=== PATIENT | female | born 1970 | race Caucasian/White ===

== ENCOUNTER → 2018-07-13 11:38 | Outpatient (CLI) | payer OTHER, SELFPAY ==
[2018-07-13 12:04] LABS: Influenza A and B by PCR Rapid Negative (Negative)
== END ==
PROVIDERS: Family Provider Family Medicine; PCP Family Medicine; Visit Provider Physician Assistant
DX: J02.9 Acute pharyngitis, unspecified (principal); J06.9 Acute upper respiratory infection, unspecified
CPT/HCPCS: 87070; 87077; 87400

== ENCOUNTER → 2018-07-21 09:44 | Outpatient (CLI) | payer OTHER, SELFPAY ==
--- NOTE | 2018-07-21 | DI.MG.S_ITS ---
BILATERAL DIGITAL SCREENING MAMMOGRAM 3D/2D WITH CAD WITH AUGMENTATION: 07/21/2018 CLINICAL: Routine screening. Comparison is made to exams dated: 03/04/2015 mammogram, 10/27/2012 mammogram, and 09/10/2011 mammogram - [facility]. The tissue of both breasts is heterogeneously dense. This may lower the sensitivity of mammography. Current study was also evaluated with a Computer Aided Detection (CAD) system. Bilateral breast implants are intact. No significant masses, calcifications, or other findings are seen in either breast. There has been no significant interval change. IMPRESSION: NEGATIVE There is no mammographic evidence of malignancy. A 1 year screening mammogram is recommended. This exam was interpreted at Station ID: [id number]. NOTE: For mammograms, a report in lay terms will be sent to the patient. Approximately 15% of breast malignancies will not be visualized mammographically. In the management of a palpable breast mass, a negative mammogram must not discourage biopsy of a clinically suspicious lesion. Electronically Signed By: Arnav estes/ezequiel:07/21/2018 12:37:39 letter sent: Normal Exam ACR BI-RADS Category 1: Negative [id number]
== END ==
PROVIDERS: Family Provider Family Medicine; PCP Family Medicine; Visit Provider Family Medicine
DX: Z12.31 Encounter for screening mammogram for malignant neoplasm of breast (principal)
CPT/HCPCS: 77063; 77067

== ENCOUNTER → 2019-01-22 11:27 | Outpatient (CLI) | payer OTHER, SELFPAY ==
--- NOTE | 2019-01-22 11:28 | DI.RAD.S_ITS ---
PROCEDURE: XR CHEST 2V INDICATIONS: rule out pnx TECHNIQUE: 2 views of the chest were acquired. COMPARISON: None. FINDINGS: Surgical changes and devices: None. Lungs and pleura: Lungs are clear. No pleural effusions or pneumothorax. Mediastinum: Mediastinal contours are normal. Heart size is normal. Bones and chest wall: No suspicious bony abnormalities. Soft tissues appear unremarkable. IMPRESSION: No acute disease. No pneumothorax identified. Dictated by: Lewis Avila M.D. on 01/22/2019 at 13:47 Approved by: Lewis Avila M.D. on 01/22/2019 at 14:10
== END ==
PROVIDERS: Family Provider Family Medicine; PCP Family Medicine; Visit Provider Nurse Practitioner
DX: R05 Cough (principal)
CPT/HCPCS: 71046

== ENCOUNTER → 2019-02-09 08:56 | Outpatient (CLI) | payer OTHER, SELFPAY ==
[2019-02-09 09:22] LABS: Add Manual Diff / Slide Review NO; Basophils Absolute Auto 100 /uL (0-100); Basophils Percent Auto 1.4 % (0-2); Eosinophils Absolute Auto 700 /uL (0-450); Eosinophils Percent Auto 11.2 % (2-4); Hematocrit 41.6 % (36-46); Hemoglobin 13.9 g/dL (12.0-16.0); Lymphocytes Absolute Auto 1700 /uL (1100-4500); Lymphocytes Percent Auto 25.9 % (25-40); Mean Corpuscular HGB Conc 33.4 % (30-36); Mean Corpuscular Hemoglobin 29.4 PG (26-34); Mean Corpuscular Volume 88.1 fL (80-100); Monocytes Absolute Auto 500 /uL (0-900); Monocytes Percent Auto 7.6 % (3-14); Neutrophils Absolute Auto 3500 /uL (1500-7000); Neutrophils Percent Auto 53.9 % (50-75); Platelet Count 278 X10^3/uL (150-400); Red Blood Cell Count 4.72 X10^6/uL (4.0-5.2); Red Cell Distribution Width 13.6 % (11.6-14.8); White Blood Cell Count 6.6 X10^3/uL (4.5-11.0)
[2019-02-09 09:37] LABS: Alanine Aminotransferase 17 IU/L (<35); Albumin 4.2 g/dL (3.5-5.0); Albumin Globulin Ratio 1.3 (1.0-2.8); Alkaline Phosphatase 63 U/L (38-126); Aspartate Aminotransferase 24 IU/L (14-36); BUN Creatinine Ratio 24.3 (6-22); Bilirubin Total 0.8 mg/dL (0.2-1.3); Blood Urea Nitrogen 17 mg/dL (7-17); Calcium 9.3 mg/dL (8.4-10.2); Carbon Dioxide 30 mmol/L (22-32); Chloride 103 mmol/L (98-107); Cholesterol 177 mg/dL (140-199); Estimated Glomerular Filt Rate > 60.0 mL/min (>60); Globulin 3.2 g/dL (1.7-4.1); Glucose 96 mg/dL (70-100); HDL Cholesterol 58 mg/dL (40-60); HEMOLYSIS 22 (0-50); LDL Cholesterol Calculated 102 mg/dL (<100); Potassium 4.5 mmol/L (3.4-5.1); Sodium 138 mmol/L (137-145); Total Protein 7.4 g/dL (6.3-8.2); Triglycerides 83 mg/dL (35-150)
[2019-02-09 10:18] LABS: TSH w/ Reflex to FT4 0.94 uIU/mL (0.47-4.68)
== END ==
PROVIDERS: PCP Family Medicine; Visit Provider Family Medicine
DX: Z13.1 Encounter for screening for diabetes mellitus (principal); Z13.6 Encounter for screening for cardiovascular disorders
CPT/HCPCS: 36415; 80053; 80061; 84443; 85025

== ENCOUNTER → 2021-03-10 07:42 | Outpatient (CLI) | payer OTHER, SELFPAY ==
[2021-03-10 08:18] LABS: Add Manual Diff / Slide Review NO; Basophils Absolute Auto 100 /uL (0-100); Basophils Percent Auto 1.2 % (0-2); Eosinophils Absolute Auto 600 /uL (0-450); Hematocrit 42.5 % (36-46); Hemoglobin 14.3 g/dL (12.0-16.0); Lymphocytes Absolute Auto 2100 /uL (1100-4500); Lymphocytes Percent Auto 35.1 % (25-40); Mean Corpuscular HGB Conc 33.7 % (30-36); Mean Corpuscular Hemoglobin 28.7 PG (26-34); Mean Corpuscular Volume 85.1 fL (80-100); Monocytes Absolute Auto 500 /uL (0-900); Neutrophils Absolute Auto 2700 /uL (1500-7000); Neutrophils Percent Auto 44.7 % (50-75); Platelet Count 310 X10^3/uL (150-400); Red Cell Distribution Width 13.2 % (11.6-14.8); White Blood Cell Count 5.9 X10^3/uL (4.5-11.0)
[2021-03-10 08:38] LABS: Erythrocyte Sedimentation Rate 4 MM/HR (0-20)
[2021-03-10 08:53] LABS: Alanine Aminotransferase 27 IU/L (<35); Albumin 4.3 g/dL (3.5-5.0); Albumin Globulin Ratio 1.4 (1.0-2.8); Alkaline Phosphatase 54 U/L (38-126); Aspartate Aminotransferase 27 IU/L (14-36); BUN Creatinine Ratio 22.6 (6-22); Bilirubin Total 0.7 mg/dL (0.2-1.3); Blood Urea Nitrogen 24 mg/dL (7-17); C-Reactive Protein Quant < 0.5 mg/dL (<1.0); Calcium 9.7 mg/dL (8.4-10.2); Carbon Dioxide 31 mmol/L (22-32); Chloride 107 mmol/L (98-107); Estimated Glomerular Filt Rate 54.7 mL/min (>60); Globulin 3.1 g/dL (1.7-4.1); Glucose 97 mg/dL (70-100); HEMOLYSIS < 15 (0-50); Potassium 4.5 mmol/L (3.4-5.1); Sodium 143 mmol/L (137-145); Total Protein 7.4 g/dL (6.3-8.2)
[2021-03-10 08:56] LABS: Rheumatoid Factor < 8.6 IU/mL (<12.0)
[2021-03-10 09:38] LABS: Vitamin B12 486 pg/mL (239-931)
[2021-03-10 09:51] LABS: Thyroid Stimulating Hormone 2.11 uIU/mL (0.47-4.68)
[2021-03-13 17:09] LABS: ANA Screen, IFA Negative (.)
== END ==
PROVIDERS: PCP Family Medicine; Referring Provider Physician Assistant; Visit Provider Physician Assistant
DX: R53.83 Other fatigue (principal); E06.3 Autoimmune thyroiditis; M25.50 Pain in unspecified joint; R41.3 Other amnesia; M25.651 Stiffness of right hip, not elsewhere classified; M25.652 Stiffness of left hip, not elsewhere classified; N95.1 Menopausal and female climacteric states
CPT/HCPCS: 36415; 80053; 82607; 84443; 85025; 85651; 86038; 86140; 86430

== ENCOUNTER → 2021-04-17 10:31 | Outpatient (CLI) | payer OTHER, SELFPAY ==
--- NOTE | 2021-04-17 | DI.MG.S_ITS ---
BILATERAL DIGITAL SCREENING MAMMOGRAM 3D/2D WITH CAD WITH AUGMENTATION: 04/17/2021 CLINICAL: Patient presents for routine screening. S/P bilateral augmentation. Comparison is made to exams dated: 07/21/2018 mammogram and 03/04/2015 mammogram - [facility]. The tissue of both breasts is heterogeneously dense. This may lower the sensitivity of mammography. Current study was also evaluated with a Computer Aided Detection (CAD) system. Bilateral breast implants are intact. No significant masses, calcifications, or other findings are seen in either breast. There has been no significant interval change. IMPRESSION: NEGATIVE There is no mammographic evidence of malignancy. A 1 year screening mammogram is recommended. This exam was interpreted at Station ID: [id number]. NOTE: For mammograms, a report in lay terms will be sent to the patient. Approximately 15% of breast malignancies will not be visualized mammographically. In the management of a palpable breast mass, a negative mammogram must not discourage biopsy of a clinically suspicious lesion. Electronically Signed By: Aden castellanos/ezequiel:04/17/2021 12:47:08 letter sent: Normal Exam ACR BI-RADS Category 1: Negative [id number]
== END ==
PROVIDERS: PCP Family Medicine; Referring Provider Family Medicine; Visit Provider Family Medicine
DX: Z12.31 Encounter for screening mammogram for malignant neoplasm of breast (principal); Z98.82 Breast implant status
CPT/HCPCS: 77063; 77067

== ENCOUNTER → 2021-05-08 10:46 | Outpatient (CLI) | payer OTHER, SELFPAY ==
[2021-05-08 13:23] LABS: Ferritin 32 ng/mL (11-264)
== END ==
PROVIDERS: PCP Family Medicine; Referring Provider Family Medicine Sleep Medicine; Visit Provider Family Medicine Sleep Medicine
DX: G25.81 Restless legs syndrome (principal)
CPT/HCPCS: 36415; 82728

== ENCOUNTER → 2021-08-04 14:02 | Outpatient (CLI) | payer OTHER, SELFPAY ==
--- NOTE | 2021-08-04 14:04 | DI.US.S_ITS ---
PROCEDURE: US THYROID INDICATIONS: LEFT ANTERIOR NECK TENDERNESS; ENLARGED THYROID TECHNIQUE: Real-time scanning was performed of the thyroid gland, with image documentation. COMPARISON: None. FINDINGS: Right: Thyroid lobe measures 6.4 x 3.0 x 2.6 cm, and is homogeneous in echotexture. Left: Thyroid lobe measures 8.3 x 4.6 x 3.9 cm, and is homogenous in echotexture. Isthmus: 15 mm thick. Nodule number: 1 Location: Left mid Size: 2.2 x 1.6 x 1.6 cm. Composition: Spongiform Echogenicity: Isoechoic Shape: wider than tall. Margins: Smooth Echogenic foci: None Total points: 1 ACR TI-RADS category: Not suspicious Nodule number: 2 Location: Left mid inferior Size: 4.0 x 2.6 x 1.3 cm. Composition: Predominantly solid Echogenicity: Isoechoic Shape: Taller than wide Margins: Smooth Echogenic foci: None Total points: 6 ACR TI-RADS category: Moderately suspicious Nodule number: 3 Location: Left inferior Size: 1.7 x 1.6 x 1.6 cm. Composition: Solid Echogenicity: Isoechoic Shape: wider than tall. Margins: Smooth Echogenic foci: Peripheral calcifications Total points: 4 ACR TI-RADS category: Moderately suspicious Nodule number: 4 Location: Isthmus Size: 1.8 x 2.0 x 1.7 cm. Composition: Spongiform Echogenicity: Isoechoic Shape: wider than tall. Margins: Smooth Echogenic foci: None Total points: 1 ACR TI-RADS category: Not suspicious IMPRESSION: Multiple thyroid nodules. Based on imaging characteristics and criteria outlined below ultrasound-guided fine needle aspiration of nodules #2 and #3 is recommended. ACR TI-RADS definitions and recommendations: TI-RADS 1 (benign): 0 points. FNA not needed. TI-RADS 2 (not suspicious): 2 points. FNA not needed. TI-RADS 3 (mildly suspicious): 3 points. * FNA if 2.5 cm or larger, follow up if 1.5 cm or larger (at 1, 3, and 5 years). TI-RADS 4 (moderately suspicious): 4-6 points. * FNA if 1.5 cm or larger, follow up if 1 cm or larger (at 1, 2, 3, and 5 years). TI-RADS 5 (highly suspicious): 7 points or more. * FNA if 1 cm or larger, follow up if 0.5 cm or larger (every year for 5 years). Dictated by: Dorothy Roberts MD, PhD on 08/08/2021 at 16:09 Approved by: Dorothy Roberts MD, PhD on 08/08/2021 at 16:16
== END ==
PROVIDERS: PCP Family Medicine; Referring Provider Physician Assistant; Visit Provider Physician Assistant
DX: E04.2 Nontoxic multinodular goiter (principal); E06.3 Autoimmune thyroiditis
CPT/HCPCS: 76536

== ENCOUNTER → 2021-09-05 09:14 | Outpatient (CLI) | payer OTHER, SELFPAY ==
--- NOTE | 2021-09-05 | PATH_ITS ---
Note [facility] Accession Number: [id number] TESTS RESULT FLAG UNITS REF RANGE LAB Clinician Provided Cytology Information No. of containers..00 Previously Prepared Cytology Slide 35 Unknown Storage/container code(s) Source: LEFT INF THYROID NODULE #3 DIAGNOSIS: LEFT INFERIOR THYROID NODULE #3, FINE NEEDLE ASPIRATION. NEGATIVE FOR MALIGNANT CELLS. ADEQUATE FOR EVALUATION. FOLLICULAR GROUPS ARE PRESENT. BENIGN FOLLICULAR (GOITEROUS) NODULE (BETHESDA CATEGORY II), SEE COMMENT. COMMENT: MICROSCOPIC EXAMINATION REVEALS A MILDLY CELLULAR ASPIRATE, COMPOSED OF COLLOID, FOLLICULAR GROUPS WITHOUT SIGNIFICANT CYTOLOGIC OR ARCHITECTURAL ATYPIA, AND BACKGROUND MACROPHAGES. THESE FINDINGS SUPPORT A BENIGN FOLLICULAR (GOITEROUS) NODULE. CORRELATION WITH CLINICAL AND RADIOGRAPHIC FINDINGS IS RECOMMENDED. ACCORDING TO THE BETHESDA REPORTING SYSTEM FOR THYROID CYTOPATHOLOGY, THE RISK OF MALIGNANCY IN THE CATEGORY BENIGN-CATEGORY II IS 0-3%; THEREFORE RECOMMEND CONTINUED ULTRASOUND SURVEILLANCE WITH REPEAT FNA IF THE NODULE SIGNIFICANTLY INCREASES IN SIZE. Pathologist ICD10: 01 E04.2 Signed out by: Ronel Kerns MD, Pathologist NPI- [id number] Performed by: Ronel Macias, Cat Operator ([facility]) Gross description: 01 30 CC, RED, CLOUDY RECIEVED: IN CYTOLYT WITH 5 ALCOHOL FIXED AND 5 QUICK STAINED SLIDES ALSO 1 RNA VIAL WAS RECEIVED. /TIM 09/06/2021 1032 Local FLAG LEGEND: L-Low Normal,H-High Normal,LL-Alert Low,HH-Alert High <-Panic Low,>-Panic High,A-Abnormal,AA-Critical Abnormal Performed at: 01 [facility] [address], [place] [address] Kb Villaseñor MD, Performed at: 01 [facility] Cytology [address], [place], [place] [id number] MD Kb Villaseñor MD Phone: [phone]
--- NOTE | 2021-09-05 | PATH_ITS ---
Note [facility] Accession Number: [id number] TESTS RESULT FLAG UNITS REF RANGE LAB Clinician Provided Cytology Information No. of containers..00 Previously Prepared Cytology Slide 35 Unknown Storage/container code(s) Source: [A] 01 LEFT MID THYROID NODULE #2 DIAGNOSIS: [A] 01 LEFT MID THYROID NODULE #2 SUSPICIOUS FOR MALIGNANCY. BETHESDA CATEGORY V. SUSPICIOUS FOR PAPILLARY CARCINOMA. SPECIMEN CONSISTS OF FOLLICULAR CELLS WITH NUCLEAR ENLARGEMENT, NUCLEAR PALLOR WITH GROOVES. INTRANUCLEAR PSEUDOINCLUSIONS ARE RARE. 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 Pathologist ICD10: 01 R89.6 Signed out by: Liya Smalls MD, Pathologist NPI- [id number] Performed by: Matt Macias, Floor Coverings Installer ([facility]) Gross description: 20 CC, RED, CLOUDY RECIEVED: IN CYTOLYT WITH 5 ALCOHOL FIXED AND 5 QUICK STAINED SLIDES ALSO 1 RNA VIAL WAS RECEIVED. /VDU 09/06/2021 1032 Local FLAG LEGEND: L-Low Normal,H-High Normal,LL-Alert Low,HH-Alert High <-Panic Low,>-Panic High,A-Abnormal,AA-Critical Abnormal Performed at: 01 =[facility] [address], [place] [address] Kb Villaseñor MD, Performed at: 01 [facility] Cytology [address] [place] [address] [address], [place], [place] [id number] MD Kb Villaseñor MD Phone: [phone]
--- NOTE | 2021-09-05 09:14 | DI.US.S_ITS ---
PROCEDURE: US FINE NEEDLE ASPIRATION INDICATIONS: Suspicious thyroid nodules left lobe; TECHNIQUE: The indications, alternatives, benefits, risks, and complications of the procedure were explained to the patient. Written informed consent was obtained and placed in the chart. The area of interest was examined sonographically and a site was chosen for ultrasound guided percutaneous sampling. The skin was prepared and draped in the usual fashion, and anesthetized with 1% lidocaine infiltrated from the skin down to the lesion. Multiple passes were then performed, with contents emptied into an appropriate pathology specimen container. A bandage was applied to the area of access at completion of the study. COMPARISON: [facility], , US THYROID, 08/04/2021, 15:13. FINDINGS: Location(s) of lesion(s) sampled: Left mid-inferior nodule and left inferior nodule Topmost: 25 gauge hypodermic needles. Number of passes: 6 for both nodules. Medications: 1% lidocaine for local anaesthesia. Complications: None. IMPRESSION: Successful ultrasound-guided left mid inferior nodule and left inferior nodule fine needle aspiration, with cytology results pending. Dictated by: Dorothy Roberts MD, PhD on 09/05/2021 at 12:25 Approved by: Dorothy Roberts MD, PhD on 09/05/2021 at 12:28
== END ==
PROVIDERS: PCP Family Medicine; Referring Provider Physician Assistant; Visit Provider Physician Assistant
DX: E04.2 Nontoxic multinodular goiter (principal); R93.89 Abnormal findings on diagnostic imaging of other specified body structures
CPT/HCPCS: 10005

== ENCOUNTER → 2022-03-03 07:55 | Outpatient (CLI) | payer OTHER, SELFPAY ==
[2022-03-03 09:51] LABS: Influenza A - CEPHEID Flu A POSITIVE (NEGATIVE); Influenza B - CEPHEID Flu B NEGATIVE (NEGATIVE); Respiratory Syncytial Virus Negative (Negative)
[2022-03-03 09:53] LABS: COVID-19 CEPHEID 4-PLEX PCR Negative (Negative)
== END ==
PROVIDERS: PCP Family Medicine; Visit Provider Physician Assistant
DX: R51.9 Headache, unspecified (principal)
CPT/HCPCS: 0241U

== ENCOUNTER 2022-03-05 14:38 | Emergency (ER) | payer OTHER, SELFPAY ==
[2022-03-05 15:07] VITALS: BP 135/88; PULSE 72; RESP 18; TEMP 37.1; O2SAT 100
--- NOTE | 2022-03-05 15:24 | ED.GENADULT ---
HPI - General Adult General Chief complaint: Upper Respiratory Symptoms Stated complaint: has Influenza A not getting better/sinus press/t-9 Time Seen by Provider: 03/05/22 15:24 Source: patient Mode of arrival: Ambulatory History of Present Illness HPI narrative: Patient is a 51-year-old female. Eight days ago started having symptoms to include headache and nausea and sinus congestion and sore throat and body aches. Two days ago she went to the walk-in clinic for these symptoms. Was diagnosed with flu a. She states she is getting short of breath with exertion. Is having a cough. Quite a bit nausea and generally not feeling very well. Related Data Previous Rx's Medication Instructions Recorded ketoconazole 2 % shampoo 1 applictn topical EVERY OTHER DAY 03/16/19 #120 mL diazepam 5 mg tablet 5 mg PO .PRIOR TO TEST PRN 08/08/21 sedation #2 tabs valacyclovir 500 mg tablet See Rx Instructions .Route 02/14/22 .COMPLEX #30 tabs ondansetron 4 mg disintegrating 4 mg PO Q6H PRN nausea and 03/05/22 tablet vomiting #14 tabs Allergies Allergy/AdvReac Type Severity Reaction Status Date / Time erythromycin base Allergy Mild diarrhea Verified 03/05/22 15:11 [ERYTHROMYCIN BASE] Review of Systems Constitutional Constitutional: Reports system reviewed and no additional complaints, except as documented ENT Ears, Nose, Mouth, and Throat: Reports system reviewed and no additional complaints, except as documented Cardiovascular Cardiovascular: Reports system reviewed and no additional complaints, except as documented Respiratory Respiratory: Reports system reviewed and no additional complaints, except as documented Gastrointestinal Gastrointestinal: Reports system reviewed and no additional complaints, except as documented Musculoskeletal Musculoskeletal: Reports system reviewed and no additional complaints, except as documented Integumentary/Breasts Skin/Breast: Reports system reviewed and no additional complaints, except as documented Neurologic Neurologic: Reports system reviewed and no additional complaints, except as documented Hematologic/Lymphatic On Anticoagulants: No Patient History Medical History Acute sinusitis Bibasilar crackles Chicken pox Cough productive of yellow sputum De Quervain's disease (tenosynovitis) Dermatitis Herpes Plantar warts Restless leg syndrome Screening for malignant neoplasm of colon Viral URI with cough Wheezing on expiration Surgical History Anesthesia History of breast augmentation Family History Father Age: 78 Prostate cancer Mother Age: 77 Skin cancer Grandfather Cancer Grandfather No problems noted. Grandmother No problems noted. Grandmother No problems noted. Social History marital status: Smoking Status: Never smoker alcohol intake: current substance use type: does not use Smoking Status: Never smoker alcohol intake frequency: a few times a week Substance Use Type: does not use Exam Initial Vital Signs Initial Vital Signs: Vital Signs Temperature 98.8 F 03/05/22 15:07 Pulse Rate 72 03/05/22 15:07 Respiratory Rate 18 03/05/22 15:07 Blood Pressure 135/88 03/05/22 15:07 Pulse Oximetry 100 03/05/22 15:07 Oxygen Delivery Method 03/05/22 15:07 HENMT Head: normal to inspection and normocephalic Ears: TM's normal bilaterally Mouth: oral mucosae normal and moist mucous membranes Throat: posterior oropharynx normal Resp Effort & Inspection: normal respiratory effort Auscultation: clear to auscultation bilaterally Cardio Rate: regular rate Rhythm: regular rhythm GI Inspection: normal to inspection Skin General: no rashes or lesions noted Neuro General: patient alert, patient awake, patient oriented x3 and moves all extremities Extrem General: normal to inspection and capillary refill normal Psych Appearance: grossly normal Course Orders Ordered: ED Orders 03/05/22 15:25 XR chest 1V Stat Discontinued Medications Al Hydrox/Mg Hydrox/Simethicone 20 ml/ Lidocaine HCl 15 ml 0 ml PO NOW ONE Stop: 03/05/22 17:01 Last Admin: 03/05/22 17:30 Dose: 30 ml Documented By: ELROY Ondansetron HCl (Ondansetron 4 Mg Odt) 4 mg SL NOW ONE Stop: 03/05/22 17:01 Last Admin: 03/05/22 17:28 Dose: 4 mg Documented By: ELROY Vital Signs Vital signs: Vital Signs - 8 hr 03/05/22 15:07 03/05/22 16:37 03/05/22 16:28 Temperature 98.8 F Pulse Rate 72 Respiratory Rate 18 18 Blood Pressure 135/88 114/83 Pulse Oximetry 100 98 Oxygen Delivery Method Room Air Room Air 03/05/22 16:28 03/05/22 16:30 Temperature Pulse Rate 75 79 Respiratory Rate Blood Pressure Pulse Oximetry 98 98 Oxygen Delivery Method Medical Decision Making Imaging Data Chest x-ray: Radiologist's Impression: [address] [address] XRay Report Signed Patient: Bell Gunn MR#: [id number] : 1970 Acct:[id number] Age/Sex: 51 / F Date of Service: 03/05/22 Loc: ED Accession Number: [id number] ?? Procedure: XR chest 1V Ordering Provider: Waqas Bagley D.O. PROCEDURE:? XR CHEST 1V ? INDICATIONS:? eval for PNA ? TECHNIQUE:? One view of the chest was acquired.? ? COMPARISON:? [facility], CR, XR CHEST 2V, 01/22/2019, 11:40. ? FINDINGS:? ? Surgical changes and devices:? None.? ? Lungs and pleura:? No dense consolidation.? Possible right base atelectasis or early airspace disease.? No pleural effusions. ? Mediastinum:? Mediastinal contours appear normal.? Heart size is normal.? ? Bones and chest wall:? No suspicious bony lesions.? Overlying soft tissues appear unremarkable.? ? IMPRESSION:? Possible right base atelectasis or early airspace disease.? No consolidation or pleural effusion. ? ? Dictated by: Naun Pereira M.D. on 03/05/2022 at 16:28 ? ? Approved by: Naun Pereira M.D. on 03/05/2022 at 16:29?? MDM Narrative Medical decision making narrative: Patient has symptoms that are consistent with the flu. She is flu positive and has been positive for the past 8 days. Chest x-ray shows no signs of pneumonia. Discussed the findings with the patient. Informed her that it will most likely be several more days before she is feeling better. She needs to continue to take Tylenol and ibuprofen for fevers and body aches and headache. Will discharge home with nausea medication. Discharge Plan Departure Patient Disposition: Home Clinical Impression: Influenza A Instructions: Influenza Activity Restrictions/Additional Instructions: [facility] You can use this as needed and as directed. I do recommend that you take Tylenol/ibuprofen for any fevers or headaches or body aches. I would suspect that you will start to feel better within the next couple days. Be sure to increase your fluid intake. If you are having GI upset you can take [id number] Tums or even a medicine called Pepcid/famotidine. Prescriptions: New ondansetron 4 mg tablet,disintegrating 4 mg PO Q6H PRN (Reason: nausea and vomiting) Qty: 14 0RF No Action ketoconazole 2 % shampoo 1 applictn Topical EVERY OTHER DAY Qty: 120 2RF Rx Instructions: apply to scalp every other day and wash off. diazepam 5 mg tablet 5 mg PO .PRIOR TO TEST PRN (Reason: sedation) Qty: 2 0RF Rx Instructions: Take 1 tablet about 1-2 hours prior to test. Repeat in 60 minutes if needed. valacyclovir 500 mg tablet See Rx Instructions .ROUTE .COMPLEX Qty: 30 2RF Dose Instruction: Take 1 tablet (500 mg) by mouth daily Rx Instructions: Take 1 tablet (500 mg) by mouth daily Referrals: Wolfgang Rodas MD [Primary Care Provider] -
--- NOTE | 2022-03-05 15:25 | DI.RAD.S_ITS ---
PROCEDURE: XR CHEST 1V INDICATIONS: eval for PNA TECHNIQUE: One view of the chest was acquired. COMPARISON: [facility], CR, XR CHEST 2V, 01/22/2019, 11:40. FINDINGS: Surgical changes and devices: None. Lungs and pleura: No dense consolidation. Possible right base atelectasis or early airspace disease. No pleural effusions. Mediastinum: Mediastinal contours appear normal. Heart size is normal. Bones and chest wall: No suspicious bony lesions. Overlying soft tissues appear unremarkable. IMPRESSION: Possible right base atelectasis or early airspace disease. No consolidation or pleural effusion. Dictated by: Naun Pereira M.D. on 03/05/2022 at 16:28 Approved by: Naun Pereira M.D. on 03/05/2022 at 16:29
[2022-03-05 16:28] VITALS: BP 114/83; PULSE 75; O2SAT 98
[2022-03-05 16:30] VITALS: PULSE 79; O2SAT 98
[2022-03-05 16:37] VITALS: RESP 18; O2SAT 98
[2022-03-05] MEDS: ONDANSETRON 4 MG ODT SL (17:28)
[2022-03-05] MEDS: MAG HYDROX/ALUMINUM/SIMETH SUS 20 ML, LIDOCAINE VISCOUS 2% 15 ML PO (17:30)
[2022-03-05 17:45] VITALS: PULSE 72; RESP 16; O2SAT 99
== END 2022-03-05 17:47 | disposition home or self-care (01) ==
PROVIDERS: Emergency Provider Emergency Medicine; PCP Family Medicine
DX: J10.1 Influenza due to other identified influenza virus with other respiratory manifestations (principal); Z20.822 Contact with and (suspected) exposure to COVID-19
CPT/HCPCS: 71045; 99283

== ENCOUNTER → 2022-03-26 08:19 | Outpatient (CLI) | payer OTHER, SELFPAY ==
[2022-03-26 08:57] LABS: Add Manual Diff / Slide Review NO; Basophils Absolute Auto 100 /uL (0-100); Basophils Percent Auto 1.1 % (0-2); Eosinophils Absolute Auto 500 /uL (0-450); Eosinophils Percent Auto 9.8 % (2-4); Hematocrit 41.3 % (36-46); Hemoglobin 13.7 g/dL (12.0-16.0); Lymphocytes Absolute Auto 1800 /uL (1100-4500); Lymphocytes Percent Auto 33.6 % (25-40); Mean Corpuscular HGB Conc 33.1 % (30-36); Mean Corpuscular Hemoglobin 28.4 PG (26-34); Mean Corpuscular Volume 85.6 fL (80-100); Monocytes Absolute Auto 500 /uL (0-900); Monocytes Percent Auto 9.4 % (3-14); Neutrophils Absolute Auto 2500 /uL (1500-7000); Neutrophils Percent Auto 46.1 % (50-75); Platelet Count 297 X10^3/uL (150-400); Red Blood Cell Count 4.83 X10^6/uL (4.0-5.2); Red Cell Distribution Width 13.4 % (11.6-14.8); White Blood Cell Count 5.5 X10^3/uL (4.5-11.0)
[2022-03-26 09:07] LABS: Alanine Aminotransferase 16 IU/L (<35); Albumin 4.1 g/dL (3.5-5.0); Albumin Globulin Ratio 1.3 (1.0-2.8); Alkaline Phosphatase 61 U/L (38-126); Aspartate Aminotransferase 18 IU/L (14-36); BUN Creatinine Ratio 25.6 (6-22); Bilirubin Total 0.8 mg/dL (0.2-1.3); Blood Urea Nitrogen 21 mg/dL (7-17); Calcium 9.5 mg/dL (8.4-10.2); Carbon Dioxide 27 mmol/L (22-32); Chloride 105 mmol/L (98-107); Cholesterol 207 mg/dL (140-199); Estimated Glomerular Filt Rate > 60 mL/min (>60); Globulin 3.2 g/dL (1.7-4.1); Glucose 99 mg/dL (70-100); HDL Cholesterol 55 mg/dL (40-60); HEMOLYSIS < 15 (0-50); LDL Cholesterol Calculated 130 mg/dL (<100); Potassium 4.4 mmol/L (3.4-5.1); Sodium 141 mmol/L (137-145); Total Protein 7.3 g/dL (6.3-8.2); Triglycerides 112 mg/dL (35-150)
[2022-03-26 09:37] LABS: TSH w/ Reflex to FT4 1.41 uIU/mL (0.47-4.68)
== END ==
PROVIDERS: PCP Family Medicine; Referring Provider Family Medicine; Visit Provider Family Medicine
DX: E06.3 Autoimmune thyroiditis (principal)
CPT/HCPCS: 36415; 80053; 80061; 84443; 85025

== ENCOUNTER → 2022-05-07 08:49 | Outpatient (CLI) | payer OTHER, SELFPAY ==
--- NOTE | 2022-05-07 08:52 | DI.US.S_ITS ---
PROCEDURE: US PELVIC COMPLETE INDICATIONS: POSTMENOPAUSAL BLEEDING TECHNIQUE: Real-time scanning was performed of the pelvic organs, with image documentation. Additional endovaginal scanning was necessary due to incomplete visualization of the adnexal and endometrial structures by transabdominal scanning. COMPARISON: None. FINDINGS: Uterus: Uterus is retroverted and mildly atrophic in size at 5.7 x 4.7 x 3.6 cm. The myometrium is heterogeneous. The endometrium measures 3 mm combined thickness. No focal intrauterine abnormality seen. Ovaries: The right ovary measures 4.0 x 1.1 x 0.9 cm. The left ovary measures 2.3 x 1.4 x 1.1 cm. The ovaries have a normal sonographic appearance. Less than 12 follicles can be seen in each ovary. No adnexal masses are seen. Other: No pathologic free abdominal or pelvic fluid. IMPRESSION: Mild atrophy of the uterus with normal endometrial thickness. No focal intrauterine abnormality seen. Otherwise, unremarkable sonographic evaluation of the pelvis. We strive to produce accurate, complete, and clear reports of imaging services. To assist us in improving patient care, this report was composed using standard report templates and voice recognition software. Therefore, it may contain abnormal punctuation, insertions and/or omissions. Occasional wrong-word or sound-alike substitutions may occur. Though we review the report and make efforts to correct it, we do recommend that the report be read carefully in proper context to recognize any text inaccuracies. Dictated by: Arnav Aguilar M.D. on 05/07/2022 at 12:50 Approved by: Arnav Aguilar M.D. on 05/07/2022 at 12:52
== END ==
PROVIDERS: PCP Family Medicine; Referring Provider Family Medicine; Visit Provider Family Medicine
DX: N95.0 Postmenopausal bleeding
CPT/HCPCS: 76830; 76856

== ENCOUNTER → 2022-11-21 11:48 | Outpatient (CLI) | payer OTHER, SELFPAY ==
--- NOTE | 2022-11-21 11:49 | DI.RAD.S_ITS ---
PROCEDURE: XR CHEST 2V INDICATIONS: rib contusion/pain on inhalation TECHNIQUE: 2 views of the chest were acquired. COMPARISON: [facility], , XR CHEST 1V, 03/05/2022, 15:27. FINDINGS: Surgical changes and devices: None. Lungs and pleura: Lungs are clear. No pleural effusions or pneumothorax. Mediastinum: Mediastinal contours are normal. Heart size is normal. Bones and chest wall: No suspicious bony abnormalities. Soft tissues appear unremarkable. IMPRESSION: Normal two view chest x-ray Approved by: Robert Remy M.D. on 11/21/2022 at 19:00
== END ==
PROVIDERS: PCP Family Medicine; Referring Provider Family Medicine; Visit Provider Family Medicine
DX: R07.1 Chest pain on breathing (principal); R07.81 Pleurodynia
CPT/HCPCS: 71046

== ENCOUNTER 2023-05-13 12:15 | Day surgery (SDC) | payer OTHER, SELFPAY ==
[2023-05-08 08:20] VITALS: BMI 24.5
--- NOTE | 2023-05-13 | PATH_ITS ---
[facility] Accession Number: [id number] No. of containers..03 Tissue . 01 Material submitted: . PART A: cervix - ANTERIOR LEEP PART B: cervix - POSTERIOR LEEP PART C: endocervix - ECC . 01 Diagnosis: A. Cervix, Anterior LEEP: Focal involvement by high-grade squamous intraepithelial lesion / DONNA-2 and patchy regions of involvement by low-grade squamous intraepithelial lesion / DONNA-1. The apparent endocervical margin is negative for dysplasia. Low-grade squamous intraepithelial lesion / DONNA-1 focally extends to the apparent ectocervical margin. No invasive tumor identified. Changes suggestive of previous instrumentation are present. . B. Cervix, Posterior LEEP: Patchy involvement by low-grade squamous intraepithelial lesion / DONNA 1. Low grade squamous intraepithelial lesion focally extends to a green-inked margin, indeterminate as to which margin. No high grade squamous intraepithelial lesion or invasive tumor identified. . C. ECC: Tangentially oriented fragment of atypical metaplastic squamous mucosa; cannot completely exclude involvement by high-grade squamous intraepithelial lesion. One small fragment of squamous epithelium demonstrates koilocytotic atypia, concerning for, but not diagnostic of, low grade squamous intraepithelial lesion / DONNA-1. Insufficient atypical tissue volume for ancillary studies. Small fragments of endocervical tissue and detached strips of glandular epithelium; negative for glandular dysplasia or malignancy. Please see comment. [facility] 05/20/20231999 Local . 01 Comment: Part C: Due to the scant nature of this biopsy, it may not be entirely cordage sales representative of this patient's endocervix; additional sampling could be considered, if clinically appropriate. . The biopsy results correlate with Pap smear [id number]. . 01 Electronically signed: . Liya Smalls MD, Pathologist NPI- [id number] . 01 Gross description: . A. Received in formalin, labeled with the patient's name, , and anterior LEEP, consists of an unoriented, linear fragment of cervix measuring 1.2 x 0.7 x 0.5 cm with a whaley, smooth ectocervix. The margin is inked blue. The specimen is serially sectioned and submitted entirely in cassette A1. B. Received in formalin, labeled with the patient's name, , and posterior LEEP, consists of an unoriented linear fragment of cervix measuring 1.5 x 0.9 x 0.3 cm. The ectocervix is whaley and smooth. The specimen is inked green. The specimen is serially sectioned and submitted entirely in cassette B1. C. Received in formalin, labeled with the patient's name, , and ECC, consists of multiple whaley soft tissue fragments admixed with mucoid material aggregating to 0.6 x 0.5 x 0.1 cm. Filtered and submitted entirely in cassette C1. ([id number]) /[facility] 05/15/2023 1225 Local . 01 Microscopic: . An immunohistochemical stain for p16 is performed on blocks A1, B1, and C1 to evaluate for block reactivity. The control stained with appropriate reactivity. . RESULTS: Block A1 P16: Positive for block immunoreactivity. . P16 block immunostaining supports the presence of high risk HPV DNA in this biopsy. . Blocks B1 and C1 P16: Negative for block immunoreactivity. . The absence of p16 block immunostaining mitigates against the presence of high risk HPV DNA in this biopsy. . . * This test was developed and its performance characteristics determined by [employer]. It has not been cleared or approved by the U.S. Food and Drug Administration. The FDA has determined that such clearance or approval is not necessary. This test is used for clinical purposes. It should not be regarded as investigational or for research. . 01 Pathologist provided ICD-10: N87.1, N87.0 . 01 CPT . 149762, 109592, 684464, V84275 Specimen Comment: A courtesy copy of this report has been sent to [facility] Performed at: 01 [facility] [address] [place] [address] [facility], [place], [place] [id number] MD Kb Villaseñor MD Phone: [phone]
[2023-05-13] MEDS: LACTATED RINGERS 1,000 ML 100 ML IV (12:30)
[2023-05-13 12:53] VITALS: BP 128/81; PULSE 75; RESP 16; TEMP 36.6; BMI 24.5
--- NOTE | 2023-05-13 13:19 | PM.PREOP ---
Pre-operative Note Interval Note History & Physical reviewed/Exam performed by Physician: Yes Changes to H&P: No H&P completed within 30 days and has changed as indicated here:: see note from 05/08/23
--- NOTE | 2023-05-13 13:53 | SUR.OPER ---
Lithotomy on padded OR bed, head on pillow, arms secured on padded arm boards at <90 degrees abduction. Legs secured in padded yellow fins stirrups.
[2023-05-13] MEDS: LIDOCAINE 1% W/EPI 20 ML INJ (13:55)
[2023-05-13] MEDS: FERRIC SUBSULFATE 8 ML SOLUTION TOP (14:03)
--- NOTE | 2023-05-13 14:11 | PM.OP.1 ---
Operative Date/Time/Diagnoses Date of procedure: 05/13/23 Time of procedure: 13:30 Pre-op diagnosis: High grade cervical dysplasia Post-op diagnosis: same Procedure & Clinicians Procedure: Loop electrode excisional procedure Same procedure as scheduled: Yes Indications: 52yo F with DONNA 2 on colposcopic biopsies. Surgeon: Giovanna Riojas Click Yes if Unassisted: Yes Anesthesia Type: General Operative Notes Findings: Normal appearing cervix and vagina. Specimen(s): other (1. anterior leep 2. posterior leep 3. ECC) Estimated Blood Loss (mL): 2 Blood products transfused: none Procedure in detail: The risks, benefits, indications and alternatives of the procedure were reviewed with the patient and informed consent was obtained. The pt was taken to the operating room where general anesthesia was obtained without difficulty. The pt was then placed in the low lithotomy position using gel-padded Niko stirrups. SCDs were placed bilaterally for VTE prophylaxis. The pt was then prepped and draped in the sterile fashion. A sterile, coated speculum was placed into the vagina and the cervix was visualized. A paracervical block was then performed using approximately 6cc of 1% lidocaine with epinephrine. A coated tenaculum was used to grasp the lip of the cervix to better visualize the squamocolumnar junction. A 0.5 x 0.5cm LEEP radius electrode was used to excise the ectocervix in two portions, anterior and posterior. A Kevorkian curette was then used to perform an endocervical curettage (ECC). All tissues were sent to pathology for review. Hemostasis was acheived with electrocautery using the roller ball electrode. Monsel's solution was then applied with excellent hemostasis noted. All instruments were then removed from the vagina. At the completion of the case the sponge and needle counts were correct x 2. The patient tolerated the procedure well and was taken to the PACU in stable condition. Complications: none Post-operative Condition: stable Disposition: PACU Plan for aftercare: Discharge home once meeting PACU criteria.
[2023-05-13 14:12] VITALS: BP 117/83; PULSE 68; RESP 14; TEMP 36.6; O2SAT 96
[2023-05-13 14:17] VITALS: BP 105/78; PULSE 60; RESP 12; O2SAT 97
[2023-05-13 14:22] VITALS: BP 116/80; PULSE 60; RESP 12; O2SAT 97
[2023-05-13 14:24] VITALS: BP 116/80; PULSE 65; RESP 14; TEMP 36.3; O2SAT 97
[2023-05-13 14:28] VITALS: BP 120/85; PULSE 59; RESP 16; O2SAT 98
--- NOTE | 2023-05-19 18:12 | PM.CALLCOV.1 ---
Call Coverage Note Note Date of Patient Contact: 05/18/23 Time of Patient Contact: 13:00 Narrative of Care Provided: Bell called, concerned about black discharge and a gross odor coming from her vagina. Smells like metal but foul. Having no abdominal tenderness or pelvic pain except for mild cramping. Had light bleeding for a couple of days after the LEEP, mostly pink, none today. Normal temperature (98.1 F at home today). Recent LEEP procedure Likely Silver Nitrate colored vaginal discharge Reviewed s/sx of infection and when to call back or go to ED. Reviewed that silver nitrate is often used after LEEP to treat bleeding from procedure. If odor continues, recommend calling Dr. Riojas' office Saturday to go in for swab to rule out infection. Recommend food changes to support good gut and vaginal health.
== END 2023-05-13 14:52 | disposition home or self-care (01) ==
PROVIDERS: PCP Family Medicine; Referring Provider Student in an Organized Health Care Education/Training Program; Visit Provider Student in an Organized Health Care Education/Training Program
PROC: 0UBC7ZZ Excision of Cervix, Via Natural or Artificial Opening (ICD-10-PCS; CPT 57522; principal; 2023-05-13 13:30)
DX: N87.1 Moderate cervical dysplasia (principal); A63.0 Anogenital (venereal) warts; N87.0 Mild cervical dysplasia
CPT/HCPCS: 57522; A9270; J1885; J2250; J2704; J3010

== ENCOUNTER → 2023-06-03 12:41 | Outpatient (CLI) | payer OTHER, SELFPAY ==
--- NOTE | 2023-06-03 | DI.MG.S_ITS ---
BILATERAL DIGITAL SCREENING MAMMOGRAM 3D/2D WITH CAD WITH AUGMENTATION: 06/03/2023 CLINICAL: Routine screening. Comparison is made to exams dated: 04/17/2021 mammogram, 07/21/2018 mammogram, and 03/04/2015 mammogram - [facility]. Both breasts are heterogeneously dense, which may obscure small masses (category c / 51-75% glandular tissue). Current study was also evaluated with a Computer Aided Detection (CAD) system. Bilateral breast implants are intact. No significant masses, calcifications, or other findings are seen in either breast. There has been no significant interval change. IMPRESSION: NEGATIVE There is no mammographic evidence of malignancy. A 1 year screening mammogram is recommended. Based on the Tyrer Cuzick model (a risk assessment model) the patient's lifetime risk is 13.3% and her 10 year risk is 3.9%. According to the ACR, ACS, and NCCN guidelines, an annual breast MRI exam along with mammogram is recommended if the patient's lifetime risk is 20% or greater. This exam was interpreted at Station ID: [id number]. NOTE: For mammograms, a report in lay terms will be sent to the patient. Approximately 15% of breast malignancies will not be visualized mammographically. In the management of a palpable breast mass, a negative mammogram must not discourage biopsy of a clinically suspicious lesion. Electronically Signed By: Beau junior/ezequiel:06/03/2023 17:54:17 letter sent: Normal Exam ACR BI-RADS Category 1: Negative [id number]
== END ==
PROVIDERS: PCP Family Medicine; Referring Provider Family Medicine; Visit Provider Family Medicine
DX: Z12.31 Encounter for screening mammogram for malignant neoplasm of breast (principal); R92.333 Mammographic heterogeneous density, bilateral breasts
CPT/HCPCS: 77063; 77067

== ENCOUNTER → 2023-06-04 13:30 | Outpatient (CLI) | payer OTHER, SELFPAY ==
[2023-06-04 14:12] LABS: Appearance Urine UA CLEAR; Bilirubin Urine UA NEGATIVE (NEGATIVE); Color Urine UA YELLOW; Glucose Urine UA NEGATIVE (Negative); Ketones Urine UA NEGATIVE (NEGATIVE); Leukocyte Esterase Urine UA 1+ (NEGATIVE); Nitrite Urine UA NEGATIVE (Negative); Occult Blood Urine UA TRACE-INTACT (Negative); Protein Urine UA NEGATIVE (Negative); Specific Gravity Urine UA 1.015 (1.000-1.035); Urobilinogen Urine UA 0.2 E.U./dL (0.2)
[2023-06-04 14:15] LABS: RBC Urine 1-5/HPF (0-5/HPF); Urine Volume 10mL (spun); WBC Urine 10-30/HPF (0-5/HPF)
[2023-06-04 14:16] LABS: Bacteria Urine Moderate (10-30); Culture Indicated Urine Specimen Cultured; Squamous Epithelial Cell Urine 1-5 /HPF (0-5/HPF)
== END ==
PROVIDERS: PCP Family Medicine; Referring Provider Obstetrics & Gynecology; Visit Provider Obstetrics & Gynecology
DX: R30.0 Dysuria (principal)
CPT/HCPCS: 81001; 87077; 87086; 87186

== ENCOUNTER → 2024-04-21 12:33 | Outpatient (CLI) | payer OTHER, SELFPAY ==
[2024-04-21 12:50] LABS: Add Manual Diff / Slide Review NO; Basophils Absolute Auto 100 /uL (0-100); Basophils Percent Auto 0.8 % (0-2); Eosinophils Absolute Auto 400 /uL (0-450); Eosinophils Percent Auto 4.7 % (2-4); Hematocrit 42.8 % (36-46); Hemoglobin 14.4 g/dL (12.0-16.0); Lymphocytes Absolute Auto 1700 /uL (1100-4500); Lymphocytes Percent Auto 20.1 % (25-40); Mean Corpuscular HGB Conc 33.7 % (30-36); Mean Corpuscular Hemoglobin 29.4 PG (26-34); Mean Corpuscular Volume 87.3 fL (80-100); Monocytes Absolute Auto 700 /uL (0-900); Monocytes Percent Auto 8.3 % (3-14); Neutrophils Absolute Auto 5500 /uL (1500-7000); Neutrophils Percent Auto 66.1 % (50-75); Platelet Count 315 X10^3/uL (150-400); Red Cell Distribution Width 13.7 % (11.6-14.8); White Blood Cell Count 8.3 X10^3/uL (4.5-11.0)
[2024-04-21 13:38] LABS: Alanine Aminotransferase 15 IU/L (<35); Albumin 4.5 g/dL (3.5-5.0); Albumin Globulin Ratio 1.7 (1.0-2.8); Alkaline Phosphatase 58 U/L (38-126); Aspartate Aminotransferase 20 IU/L (14-36); BUN Creatinine Ratio 20.2 (6-22); Bilirubin Total 0.7 mg/dL (0.2-1.3); Blood Urea Nitrogen 19 mg/dL (7-17); Calcium 9.7 mg/dL (8.4-10.2); Carbon Dioxide 29 mmol/L (22-32); Chloride 102 mmol/L (98-107); Estimated Glomerular Filt Rate > 60 mL/min (>60); Globulin 2.7 g/dL (1.7-4.1); Glucose 78 mg/dL (70-100); HEMOLYSIS < 15 (0-50); Potassium 4.4 mmol/L (3.4-5.1); Sodium 137 mmol/L (137-145); Total Protein 7.2 g/dL (6.3-8.2)
[2024-04-21 13:52] LABS: Free T3, Triiodothyronine Free 2.71 pg/mL (2.77-5.27)
[2024-04-21 14:06] LABS: TSH w/ Reflex to FT4 0.48 uIU/mL (0.47-4.68)
[2024-04-21 14:25] LABS: Vitamin B12 896 pg/mL (239-931)
[2024-04-25 07:08] LABS: Thyroid Peroxidase Antibodies 359 IU/mL (0-34)
== END ==
PROVIDERS: PCP Family Medicine; Referring Provider Physician Assistant; Visit Provider Physician Assistant
DX: R53.83 Other fatigue (principal)
CPT/HCPCS: 36415; 80053; 82607; 84443; 84481; 85025; 86376

== ENCOUNTER → 2024-04-23 12:57 | Outpatient (CLI) | payer OTHER, SELFPAY ==
--- NOTE | 2024-04-23 13:01 | DI.US.S_ITS ---
PROCEDURE: US THYROID INDICATIONS: Thyroid nodules TECHNIQUE: Real-time scanning was performed of the thyroid gland, with image documentation. COMPARISON: [facility], US, US THYROID, 08/04/2021, 15:13. FINDINGS: Thyroid: Right lobe measures 5.8 x 2.4 x 3 cm. Left lobe measures 7.2 x 3.1 x 4.6 cm. Isthmus is 1.3 cm thick. Echotexture is heterogeneous with multiple nodules.. Nodule 1 is in the left mid thyroid measuring 2.1 x 1 x 1.5 cm. This is spongiform and stable. TR 1. Nodule 2: Left mid/inferior thyroid nodule appears solid and isoechoic measuring 4.5 x 2.3 cm. TR 3. This is stable in size This meets criteria for sampling. Nodule 3: Predominately solid calcified nodule in the left inferior region, with hypoechoic echotexture. TR 4. This measures 2.5 x 2.1 cm, larger than prior. This meets criteria for sampling. Nodule 4 in the isthmus measures 2.4 x 2.6 cm. This is larger than prior. This is solid and isoechoic. TR 3. This meets criteria for sampling IMPRESSION: Thyroid nodules as described above, some which are larger than prior. ACR TI-RADS definitions and recommendations: TI-RADS 1 (benign): 0 points. FNA not needed. TI-RADS 2 (not suspicious): 2 points. FNA not needed. TI-RADS 3: 3 points. * FNA if 2.5 cm or larger, follow up if 1.5 cm or larger (at 1, 3, and 5 years). TI-RADS 4: 4-6 points. * FNA if 1.5 cm or larger, follow up if 1 cm or larger (at 1, 2, 3, and 5 years). TI-RADS 5: 7 points or more. * FNA if 1 cm or larger, follow up if 0.5 cm or larger (every year for 5 years). Dictated by: Naun Pereira M.D. on 04/23/2024 at 16:28 Approved by: Naun Pereira M.D. on 04/23/2024 at 16:33
== END ==
LOC: US 12:59
PROVIDERS: PCP Family Medicine; Referring Provider Physician Assistant; Visit Provider Physician Assistant
DX: E04.2 Nontoxic multinodular goiter (principal); R53.83 Other fatigue
CPT/HCPCS: 76536

== ENCOUNTER → 2024-05-11 14:44 | Outpatient (CLI) | payer OTHER, SELFPAY ==
--- NOTE | 2024-05-11 | PATH_ITS ---
Note [facility] Accession Number: [id number] TESTS RESULT FLAG UNITS REF RANGE LAB Clinician Provided Cytology Information No. of containers..01 Other (Miscellaneous) No. of containers..12 Previously Prepared Cytology Slide Source: 01 THYROID ISTHMUS NODULE #4 DIAGNOSIS: 01 THYROID ISTHMUS NODULE #4, FINE NEEDLE ASPIRATION. INCONCLUSIVE. B[place] CATEGORY III. ATYPIA OF UNDETERMINED SIGNIFICANCE, SEE COMMENT. COMMENT: EXAMINATION OF THE SMEARS REVEALS A HYPOCELLULAR TO MILDLY CELLULAR ASPIRATE, COMPOSED OF SCANT COLLOID, MACROPHAGES AND BENIGN FOLLICULAR GROUPS WITH FOCAL HURTHLE CELL CHANGES. IN ADDITION, THERE ARE RARE GROUPS WHERE MILD NUCLEAR ENLARGEMENT, OVERLAPPING, PALLOR AND RARE NUCLEAR MEMBRANE IRREGULARITIES (GROOVES) ARE NOTED. INTRANUCLEAR PSEUDOINCLUSIONS ARE NOT SEEN. THE RISK OF MALIGNANCY IN THE B[place] CATEGORY III IS 5-15%. ADDITIONAL MOLECULAR TESTING WILL BE PERFORMED ON THE SUBMITTED RNA VIAL FOR FURTHER EVALUATION. Pathologist ICD10: 01 E04.1, C73 Signed out by: Gold Kerns MD, Pathologist NPI- [id number] Performed by: Augusto Floyd, Tile Edger ([facility]) Gross description: 01 30 CC, COLORLESS, CLEAR RECIEVED: IN CYTOLYT WITH 6 ALCOHOL FIXED AND 6 QUICK STAINED SLIDES ALSO 1 RNA VIAL WILL ON 11-13-2024.VO /VDU 05/12/[address] [place] [address] FLAG LEGEND: L-Low Normal,H-High Normal,LL-Alert Low,HH-Alert High <-Panic Low,>-Panic High,A-Abnormal,AA-Critical Abnormal Performed at: 01 [address], [place] [address] Kb Villaseñor MD, Performed at: [address] [address], [place], [place] [id number] MD Kb Villaseñor MD Phone: [phone]
--- NOTE | 2024-05-11 | PATH_ITS ---
Note [facility] Accession Number: [id number] TESTS RESULT FLAG UNITS REF RANGE LAB Clinician Provided Cytology Information No. of containers..01 Other (Miscellaneous) No. of containers..00 Previously Prepared Cytology Slide Source: LEFT THYROID NODULE #2 DIAGNOSIS: LEFT THYROID NODULE #2 BETHESDA CATEGORY III. ATYPIA OF UNDETERMINED SIGNIFIANCE - NUCLEAR ATYPIA. Comment: Examination of the smears reveals a mildly cellular aspirate composed of scant colloid, macrophages, and benign follicular groups with focal H?rthle cell changes. There are rare groups with mild nuclear enlargement, overlapping, mild pallor, and rare nuclear membrane irregularities. Intranuclear pseudoinclusions are not seen. The risk of malignancy for [place] Category III lesions is 5-15%. Additional molecular testing will be performed on the submitted RNA vial. Pathologist ICD10: 01 R89.6 Signed out by: Roxi Garcia DO, Pathologist NPI- [id number] Performed by: Hemalatha Pollack, Field Tech ([facility]) Gross description: 01 30 CC, COLORLESS, CLEAR RECEIVED IN WHITE CAP CYTOLYT CONTAINER. RECEIVED 5 FIXED STAINED SLIDES IN 2 COFFINS. RECEIVED 5 ALCOHOL FIXED SLIDES IN 2 GREEN CAP COFFINS. RECEIVED 1 RNA VIAL. : 01-04-2025 ZAIDA /KAVEH 05/12/2024 1150 Local FLAG LEGEND: L-Low Normal,H-High Normal,LL-Alert Low,HH-Alert High <-Panic Low,>-Panic High,A-Abnormal,AA-Critical Abnormal Performed at: 01 =[address] [facility], [place] [address] Kb Villaseñor MD, Performed at: [address] [address], [place], [place] [id number] MD Kb Villaseñor MD Phone: [phone]
--- NOTE | 2024-05-11 14:46 | DI.US.S_ITS ---
PROCEDURE: US FINE NEEDLE ASPIRATION INDICATIONS: F/U THYROID FNA 2021; HX PAPILLARY CA TECHNIQUE: The indications, alternatives, benefits, risks, and complications of the procedure were explained to the patient. Written informed consent was obtained and placed in the chart. The area of interest was examined sonographically and a site was chosen for ultrasound guided percutaneous sampling. The skin was prepared and draped in the usual fashion, and anesthetized with 1% lidocaine infiltrated from the skin down to the lesion. Multiple passes were then performed, with contents emptied into an appropriate pathology specimen container. A bandage was applied to the area of access at completion of the study. COMPARISON: [facility], US FINE NEEDLE ASPIRATION, 09/05/2021, 9:18. FINDINGS: Location(s) of lesion(s) sampled: Nodules labeled 2 and 4 on prior ultrasound Lenore: 25 gauge hypodermic needles. Number of passes: 6 passes on nodule 4, 5 passes on nodule 2 Medications: 1% lidocaine for local anaesthesia. Complications: Patient became lightheaded towards the end of the procedure and the procedure was terminated after the 5th pass of nodule 2. IMPRESSION: Successful ultrasound-guided thyroid nodule fine needle aspiration, with cytology results pending. Dictated by: Madhav Merrill M.D. on 05/11/2024 at 15:57 Approved by: Madhav Merrill M.D. on 05/11/2024 at 15:59
== END ==
PROVIDERS: PCP Family Medicine; Referring Provider Physician Assistant; Visit Provider Physician Assistant
DX: C73 Malignant neoplasm of thyroid gland (principal); E04.1 Nontoxic single thyroid nodule
CPT/HCPCS: 10005

== ENCOUNTER → 2025-01-04 10:39 | Outpatient (CLI) | payer OTHER, SELFPAY | PROVIDERS: PCP Family Medicine; Referring Provider Physician Assistant; Visit Provider Physician Assistant | DX: Z12.11 Encounter for screening for malignant neoplasm of colon (principal) | CPT/HCPCS: 82274 ==